=== PATIENT | male | born 1960 | race Caucasian/White ===

== ENCOUNTER → 2018-09-23 | Outpatient (REF) | payer MEDICARE ==
[2018-09-23 19:43] LABS: BLOOD UREA NITROGEN 12 MG/DL (7-18); CREATININE FOR GFR 1.09 MG/DL (0.70-1.30); GLOMERULAR FILTRATION RATE > 60.0 (>56)
== END ==
LOC: M LABDRWAD 19:29
PROVIDERS: ATTEND Neurological Surgery
DX: Q28.2 Arteriovenous malformation of cerebral vessels (principal)

== ENCOUNTER → 2018-09-23 | Outpatient (CLI) | payer MEDICARE ==
[~2018-09-23] MED LIST: ISOVUE-370 76% 100ML VIAL (Q9967) As Ordered ONE
--- NOTE | 2018-09-24 10:13 | REP ---
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 Comparison noncontrast brain CT study April 01, 2006. No other comparison imaging is available. TECHNIQUE: 75 mL of intravenous Isovue 370 is acquired. Helical scanning is acquired. Maximum intensity projection, MPR, and surface rendered 3D imaging is generated. FINDINGS: CT angiography confirms the presence of a prominent draining vein coursing obliquely through the parenchyma of the left superior cerebellum with a draining vein apparently entering the sagittal sinus. The branching pattern in the parenchyma of the left cerebellar hemisphere is compatible with a developmental venous anomaly. No other vascular anomaly is appreciated intracranially. There is no evidence of arteriovenous fistula or other malformation. The sagittal and both sigmoid sinuses are patent and enhance normally. The distal vertebral arteries and basilar artery are unremarkable. Distal internal carotid arteries are unremarkable. The A1 segment of the left anterior cerebral artery is small compared to its right-sided counterpart. There is no evidence of green aneurysm. No abnormal intracranial parenchymal enhancement is seen. There is no evidence of infarct, hemorrhage, or mass. 3D surface rendered images show no additional abnormality. IMPRESSION: Fairly large developmental venous anomaly in the left cerebellar hemisphere noted. No other evidence of intracranial vascular malformation. Electronically Signed by Dylan Mcdonnell MD 09/24/2018 04:45 P
== END ==
LOC: M RAD 18:15
PROVIDERS: ATTEND Neurological Surgery
DX: Q28.2 Arteriovenous malformation of cerebral vessels (principal)
CPT/HCPCS: 70496; 82565; 84520; Q9967

== ENCOUNTER → 2019-08-13 | Outpatient (REF) | payer MEDICARE ==
[2019-08-18 15:07] LABS: ANCA-ATYPICAL <1:20 titer (Neg:<1:20); ANTI DS-DNA AB Negative (Negative); ANTINUCLEAR ANTIBODIES DIRECT Negative (Negative); CYTOPLASMIC NEUTROP AB ANCA-C <1:20 titer (Neg:<1:20); PERINUCLEAR AB ANCA-P <1:20 titer (Neg:<1:20); RNP ANTIBODIES <0.2 AI (0.0-0.9); SJOGREN'S ANTI SS-A <0.2 AI (0.0-0.9); SJOGREN'S ANTI SS-B <0.2 AI (0.0-0.9); SMITH ANTIBODIES <0.2 AI (0.0-0.9)
== END ==
LOC: M LAB REF 16:53
PROVIDERS: ATTEND Internal Medicine Pulmonary Disease
DX: R05 Cough (principal)

== ENCOUNTER → 2019-09-11 | Outpatient (REF) | payer MEDICARE ==
[2019-09-16 16:29] LABS: MALB URINE SIEMENS 61.4 MG/L; MAU/CREAT RATIO 23.3 MCG/MG (0.0-30.0)
== END ==
LOC: M LAB REF 15:00
PROVIDERS: ATTEND Nurse Practitioner Family
DX: E11.65 Type 2 diabetes mellitus with hyperglycemia (principal)

== ENCOUNTER → 2019-09-18 | Outpatient (CLI) | payer MEDICARE ==
--- NOTE | 2019-09-18 14:35 | PFTRPT ---
Visit Date: 09/18/2019 Referring Doctor: Harmeet Grant D.O. Height: 70.00 Inches Weight: 195.00 Lbs BSA: 2.06 Diagnosis: R06.00 Spirometry: Pre and post bronchodilator study of excellent technical quality. Mild difficulty with required maneuver. Forced vital capacity normal. FEV1 in proportion. Obstructive index is, therefore, normal. Flow Volume Loop: Expiratory limb of the flow volume loop is normal. No significant bronchodilator response is identified. Lung Volumes: Total lung capacity normal. Residual volume is in proportion. Diffusing Capacity: Diffusing capacity although minimally reduced is appropriate for alveolar volume but hemoglobin reduced at 10.5. Airway Mechanics: Airway resistance and conductance are normal. IMPRESSION: Mild reduction in the absolute diffusing capacity probably on the basis of anemia. Please correlate clinically. MTDD
== END ==
LOC: M CARPUL 13:59
PROVIDERS: ATTEND Internal Medicine Pulmonary Disease
DX: R06.00 Dyspnea, unspecified (principal)

== ENCOUNTER → 2020-04-09 | Outpatient (CLI) | payer MEDICARE ==
[~2020-04-09] MED LIST changes: +INSUDET SC; +INSUHUMDS SC; -ISOVUE-370 76% 100ML VIAL (Q9967) As Ordered ONE; +MORP15TA2 PO; +PANT40TA29 PO; +PREG100CA PO; +PROZ20CA11 PO; +PROZ40CA PO; +REGL5TAB2 PO; +TIZA2CAP PO; +medical marijuana
== END ==
LOC: M LABSMTC 13:59
PROVIDERS: ATTEND Anesthesiology
DX: Z01.812 Encounter for preprocedural laboratory examination (principal); Z20.822 Contact with and (suspected) exposure to COVID-19

== ENCOUNTER 2020-04-14 08:37 | Day surgery (SDC) | payer MEDICARE ==
[~2020-04-14] VITALS: Ht 177.8 cm; Wt 74.4 kg
[~2020-04-14 08:37] MED LIST changes: +NS 1,000 ML IV ONE
[2020-04-14] MEDS ORDERED: LIDOCAINE 2% 100MG/5ML SDV (FOR ANES.) As Ordered ONE (09:20)
[2020-04-14] MEDS ORDERED: propofoL 200 MG/20 ML VIAL As Ordered ONE ×2 (09:20→09:52)
[2020-04-14] MEDS ORDERED: fentaNYL 100 MCG/2 ML INJECTION (J3010) As Ordered ONE (09:27)
[2020-04-14] MEDS ORDERED: ONDANSETRON 4MG/2ML VIAL As Ordered ONE (09:44)
--- NOTE | 2020-04-14 10:09 | ROOR ---
Patient Name: Bud Walker Procedure Date: 04/14/2020 9:41 AM Date of : 1960 Age: 59 Room: [facility] Gender: Male Note Status: Finalized Procedure: Upper Endoscopy + Biopsies Indications: Nausea with vomiting Providers: Bo Paige MD Referring MD: James Lockett DO Requesting Provider: Medicines: Monitored Anesthesia Care Complications: No immediate complications. Procedure: Pre-Anesthesia Assessment: - The heart rate, respiratory rate, oxygen saturations, blood pressure, adequacy of pulmonary ventilation, and response to care were monitored throughout the procedure. The Endoscope was introduced through the mouth, and advanced to the second part of duodenum. The upper GI endoscopy was accomplished without difficulty. The patient tolerated the procedure well. Findings: The Z-line was regular and was found 35 cm from the incisors. Multiple biopsies were obtained with cold forceps for evaluation to rule out Steward's Esophagus randomly at the gastroesophageal junction. No other significant abnormalities were identified in a careful examination of the stomach. Biopsies were taken with a cold forceps in the gastric antrum for Helicobacter pylori testing. The exam of the duodenum was otherwise normal. Impression: - Z-line regular, 35 cm from the incisors. - Multiple biopsies were obtained at the gastroesophageal junction. - Biopsies were taken with a cold forceps for Helicobacter pylori testing. - The examination was otherwise normal. Recommendation: - Patient has a contact number available for emergencies. The signs and symptoms of potential delayed complications were discussed with the patient. Return to normal activities tomorrow. Written discharge instructions were provided to the patient. - Gastroparesis diet indefinitely. - Continue present medications. - Discharge patient to home. - Await pathology results. - Telephone GI clinic for pathology results in 1 week. - Return to referring physician. - The findings and recommendations were discussed with the patient. Procedure Code(s): --- Professional --- 23388, Esophagogastroduodenoscopy, flexible, transoral; with biopsy, single or multiple Diagnosis Code(s): --- Professional --- R11.2, Nausea with vomiting, unspecified CPT copyright 2019 [employer]. All rights reserved. The codes documented in this report are preliminary and upon triage licensed practical nurse review may be revised to meet current compliance requirements. Bo Paige MD Bo Paige MD 04/14/2020 10:08:18 AM Electronically signed by Bo Paige MD Number of Addenda: 0 Note Initiated On: 04/14/2020 9:41 AM Estimated Blood Loss: Estimated blood loss: none.
[2020-04-14 10:47] VITALS: BP 137/83
== END 2020-04-14 10:50 | disposition home or self-care (01) ==
LOC: M OPP 08:37
PROVIDERS: ATTEND Internal Medicine Gastroenterology
DX: R11.2 Nausea with vomiting, unspecified (principal); E10.43 Type 1 diabetes mellitus with diabetic autonomic (poly)neuropathy; D13.0 Benign neoplasm of esophagus; D13.1 Benign neoplasm of stomach; M10.9 Gout, unspecified; R12 Heartburn; Z88.8 Allergy status to other drugs, medicaments and biological substances; Z79.4 Long term (current) use of insulin; Z79.899 Other long term (current) drug therapy
CPT/HCPCS: 43239; 88305; J2405; J3010

== ENCOUNTER → 2020-04-29 | Outpatient (CLI) | payer MEDICARE ==
[~2020-04-29] MED LIST changes: +E-Z-GAS II EFFERVESCENT PACKET (SODIUM BICARB./CITRIC ACID/SIMETHICONE) As Ordered ONE; +E-Z-HD 98% w/w 340GM SUSP BTL As Ordered ONE; +E-Z-PAQUE 96% w/w SUSP 176GM BTL As Ordered ONE; -NS 1,000 ML IV ONE
--- NOTE | 2020-04-29 16:51 | REP ---
INDICATION: NAUSEA W/ VOMITING. COMPARISON: None TECHNIQUE: This procedure was performed by Ny Tamayo [facility], under the direct supervision of Dr. Mcdonnell. Images were reviewed with Dr. Mcdonnell prior to dictation. Liquid barium and gas producing crystals were given in the erect position, as well as liquid barium in the prone oblique position in order to perform a double contrast upper GI examination. Additionally liquid barium was given at the end of the examination in order to perform a small-bowel follow-through. FINDINGS: The nutritional yeast supervisor film shows no organomegaly or pathological masses. The intestinal gas pattern is unremarkable. There is mild curvature of the T-spine convex to the left, with mild curvature of the L-spine convex to the right. The oral and pharyngeal stages of deglutition were unremarkable. Esophageal transport is prompt and efficient and there is no evidence of esophagitis, stricture, or mucosal ring. There is evidence of a hiatal hernia. Gastroesophageal reflux was visualized to the level of the jasmyn. The stomach mccain are normally outlined. The rugal folds appears slightly thickened, this could indicate gastritis. The duodenal mccain are normally outlined. The mucosal folds are smooth and regular. There is no duodenitis, peptic ulcer disease or neoplasm. The visualized portion of the proximal small bowel appears normal in course and caliber. The barium column was followed through the small bowel to the level of the terminal ileum. Small bowel transit time is approximately 150 minutes. During fluoroscopy gentle palpation shows all loops are freely movable and pliable. There is no fixed angulated loops. There are numerous folds of the ileum, giving it a jejunoileal fold pattern reversal appearance. This could be indicative of celiac disease. The small bowel mucosal pattern is normal in course and caliber. There is no transition to suggest a partial small bowel obstruction. Spot filming of the terminal ileum shows it to be unremarkable. IMPRESSION: 1. Small hiatal hernia. 2. Gastroesophageal reflux to the level of the jasmyn. 3. Mildly thickened rugal folds, could be an indication of gastritis. 4. Jejunoileal fold pattern reversal of the ileum, this could be indicative of celiac disease. 0.4 minutes of fluoroscopy time was utilized for this procedure. Some fluoroscopic images are performed with last image hold technology. These images require no additional radiation. <Electronically signed by Ny Tamayo > 04/29/20 [id number] <Electronically signed by Felipe Mcdonnell > 04/29/20 [id number]
== END ==
LOC: M RAD 09:18
PROVIDERS: ATTEND Internal Medicine Gastroenterology
DX: R11.2 Nausea with vomiting, unspecified (principal); K44.9 Diaphragmatic hernia without obstruction or gangrene; K21.9 Gastro-esophageal reflux disease without esophagitis

== ENCOUNTER 2020-12-12 16:39 | Inpatient (IN) | payer MEDICARE ==
[~2020-12-12] VITALS: Ht 177.8 cm; Wt 68.1 kg
[~2020-12-12 16:39] MED LIST changes: -E-Z-GAS II EFFERVESCENT PACKET (SODIUM BICARB./CITRIC ACID/SIMETHICONE) As Ordered ONE; -E-Z-HD 98% w/w 340GM SUSP BTL As Ordered ONE; -E-Z-PAQUE 96% w/w SUSP 176GM BTL As Ordered ONE
[2020-12-12] MEDS ORDERED: ONDA4TAB6 PO (16:55)
[2020-12-12] MEDS ORDERED: CEPH250REC PO (16:55)
[2020-12-12] MEDS ORDERED: LORA2CON5 PO (16:55)
[2020-12-12] MEDS ORDERED: FLUO20SO PO (16:55)
[2020-12-12] MEDS ORDERED: PREG20SO PO (16:55)
[2020-12-12] MEDS ORDERED: MORP20SO PO (16:55)
[2020-12-12] MEDS ORDERED: VANCOMYCIN HCL 1,000 MG, VIAL MATE ADAPTER 1 EACH in NS 250 ML IV ONE (18:00)
[2020-12-12 18:22] LABS: BASO % 0.2 % (0.0-1.0); EOS # 0.1 10^3/uL (0.0-0.5); EOS % 0.7 % (0.0-3.0); HEMATOCRIT 37.5 % (42.0-52.0); HEMOGLOBIN 13.2 g/dl (13.5-17.5); LYMPH # 1.7 10^3/uL (1.5-5.0); LYMPH % 10.5 % (24.0-44.0); MEAN CORPUSCULAR HEMOGLOBIN 28.6 pg (27.0-33.0); MEAN CORPUSCULAR HGB CONC 35.2 g/dl (32.0-36.5); MEAN CORPUSCULAR VOLUME 81.3 fl (80.0-96.0); MONO % 6.3 % (2.0-8.0); NEUTROPHILS # 13.3 10^3/uL (1.5-8.5); NEUTROPHILS % 81.4 % (36.0-66.0); PLATELET COUNT, AUTOMATED 418 10^3/uL (150-450); RED BLOOD COUNT 4.61 10^6/uL (4.30-6.10); WHITE BLOOD COUNT 16.3 10^3/uL (4.0-10.0)
[2020-12-12] MEDS ORDERED: MORPHINE 4 MG/ML 1ML VIAL/SYRINGE (J2270) IV ONE (18:30)
--- NOTE | 2020-12-12 18:36 | REP ---
INDICATION: R leg pain r/o dvt. COMPARISON: None. TECHNIQUE: Multiple ultrasonographic images of the deep venous structures of the right lower extremity were obtained from the inguinal ligament to the ankle. Venous compression techniques, color doppler imaging, and augmentation techniques were also obtained where appropriate. As per the ACR guidelines the anterior tibial vein can not be effectively evaluated. Only compression techniques in the calf on the peroneal and posterior tibial veins was attempted/performed. FINDINGS: There is no abnormal echogenic material seen within any of the visualized deep venous structures that would suggest acute thrombosis. Coaptation is unremarkable throughout. Doppler interrogation shows an expected response to respiratory variability and augmentation in the thigh. Compression techniques in the calf showed no abnormality. The color flow images show what appears to be a normal vascular pattern throughout the thigh. IMPRESSION: There is no ultrasonographic evidence of deep venous thrombosis involving any of the visualized deep venous structures of the right lower extremity as described above. Due to technical parameters calf vein DVT can not be ruled out. Lymph nodes of various sizes were seen in the groin. The largest has a short axis dimension of 1 cm and a long axis dimension of 2 cm. <Electronically signed by Ricardo Hebert > 12/12/20 [id number]
[2020-12-12 18:42] LABS: ERYTHROCYTE SEDIMENTATION RATE 82 mm/hr (0-20)
[2020-12-12 18:55] LABS: RSV AMPLIFICATION NEGATIVE (NEGATIVE)
[2020-12-12] MEDS ORDERED: OMEP-221 PO (18:56)
[2020-12-12] MEDS ORDERED: HOME MED LIST COMPLETE! XX SCH (19:00)
[2020-12-12] MEDS ORDERED: DEXTROSE 50% 50 ML SYRINGE IV PRN (19:05)
[2020-12-12] MEDS ORDERED: GLUCAGON INJ 1MG VIAL SC PRN (19:05)
[2020-12-12] MEDS ORDERED: ONDANSETRON 4MG/2ML VIAL IV PRN (19:05)
[2020-12-12] MEDS ORDERED: ACETAMINOPHEN TAB 650MG DOSE (2X325MG) PO PRN (19:05)
[2020-12-12] MEDS ORDERED: GLUCOSE 4GM CHEW TABLET PO PRN (19:05)
[2020-12-12 19:39] LABS: BLOOD UREA NITROGEN 13 MG/DL (7-18); CALCIUM LEVEL 8.5 MG/DL (8.5-10.1); CARBON DIOXIDE LEVEL 33 MEQ/L (21-32); CHLORIDE LEVEL 88 MEQ/L (98-107); CREATININE FOR GFR 1.06 MG/DL (0.70-1.30); GLOMERULAR FILTRATION RATE > 60.0 (>56); GLUCOSE, FASTING 695 MG/DL (70-100); POTASSIUM SERUM 4.7 MEQ/L (3.5-5.1); SODIUM LEVEL 125 MEQ/L (136-145)
[2020-12-12] MEDS ORDERED: HumuLIN R (REGULAR) INSULIN (NovoLIN R) **100U/ML** PER UNIT IV STA (19:53)
[2020-12-12 20:19] LABS: HEMOGLOBIN A1c 13.5 %
[2020-12-12] MEDS ORDERED: NS 1,000 ML IV ONE (20:20)
[2020-12-12] MEDS ORDERED: MORPHINE 2 MG/ML 1ML VIAL (J2270) IV PRN (20:25)
[2020-12-12] MEDS ORDERED: FLUoxetine 20 MG CAP PO SCH (21:00)
[2020-12-12] MEDS ORDERED: HumaLOG INSULIN (NovoLOG) PER UNIT SC SCH (21:00)
[2020-12-12 22:00] VITALS: BP 147/82
--- NOTE | 2020-12-12 22:09 | HPEPDOC ---
General Date of Admission Dec 12, 2020 at 19:01 Date of Service: Dec 12, 2020 Chief Complaint The patient is a 60-year-old male admitted with a reason for visit of Cellulitis In Diabetic Foot. Source: Patient History of Present Illness Lee Walker is a 60-year-old male with significant history of BPH, hyperlipidemia, hypertension, GERD, gastroparesis, and diabetes who presents with complaints of right foot pain. Patient reports that he has been treated outpatient for cellulitis of the right foot and has antibiotics changed twice doxy and then Keflex but as symptoms have gotten worse he was told by clinic to come to the hospital for IV antibiotics. Patient endorses redness, pain and swelling to right foot. He describes as moderate sharp pain and tenderness most notably on the bottom of his foot. Patient does have neuropathy related to his diabetes and thus he does endorse neuropathic type pain as well. Patient reports that he has not been taking any blood sugar or heart related medication. He reports that he has been on hospice but his "levels are too g ood" and thus he is no longer on hospice. Patient is adamant regarding DNR/DNI. He is particular regarding no further treatment for his diabetes or any type of cardiac medications. He reports that he does not want his blood sugar checked or insulin given. He does not want to take anything for his cholesterol or high blood pressure he only wants to take comfort related medications. Patient is interested in antibiotics and IV fluids as needed for his foot infection. He does want treatment for his right foot. He however would rather have amputation of the foot than debridement he outlines. Patient reports that he has seen podiatry in the past but has not followed up for some time. At baseline, patient walks with a cane but has reported gait discomfort due to pain of ambulating on the foot. Pt denies perera, sinus congestion, sore throat, productive cough, sob, palpitations, chest pain, abdominal pain, weakness,or syncope. Patient does endorse episodes of nausea vomiting diarrhea occasional but this is not new. Patient reports that he suffers from gastroparesis related to his diabetes and this is not uncommon for him to have episodes of GI upset 3-4 times a week. Of note, patient with elevated white count, WBC 16.3, lactic 1.3. Patient with blood glucose 695 and again he declined insulin for this. Post hydration lab work did show improvement to blood glucose in the 300s. Podiatry consulted and appreciate recommendations. Patient to have x-ray of foot and MRI for consideration of osteomyelitis. Patient will be admitted for further evaluation management of presenting concerns. Home Medications Scheduled Cephalexin Monohydrate (Cephalexin) 250 Mg/5 Ml Susp.recon, 10 ML PO TID, (Reported) started on 12/07/20 x 10 days Fluoxetine HCl (Fluoxetine HCl) 20 Mg/5 Ml Solution, 20 ML PO QHS, (Reported) Omeprazole (Omeprazole) 40 Mg Capsule.dr, 40 MG PO QHS, (Reported) OPEN CAPSULE AND PUT CONTENTS IN APPLE SAUCE AND SWALLOW IMMEDIATELY Pregabalin (Pregabalin) 20 Mg/1 Ml Solution, 5 ML PO TID, (Reported) Scheduled PRN Lorazepam (Lorazepam) 2 Mg/1 Ml Oral.conc, 0.25 ML PO Q2HP PRN for ANXIETY/AGITATION, (Reported) Morphine Sulfate (Morphine Sulfate) 20 Mg/5 Ml Solution, 3 ML PO Q4HP PRN for pain, (Reported) Ondansetron (Ondansetron Odt) 4 Mg Tab.rapdis, 1 TAB PO BIDP PRN for NAUSEA, (Reported) Allergies Coded Allergies: metformin (Verified Adverse Reaction, Intermediate, vomiting, 03/29/20) simvastatin (Verified Adverse Reaction, Intermediate, muscle cramps, 03/29/20) Past Medical History Medical History BPH, hyperlipidemia, hypertension, GERD, diabetes, former smoker Surgical History Ventral hernia surgery, TURP Family History Significant Family History: Other (family members wiht foot amputation d/t DM or vascular reasons, pt uncertain) Social History * Smoker: former Smoker Alcohol: Denies Drugs: denies Recent Travel/Sick Contacts: Denies: Recent travel, Recent sick contacts Psychosocial History: Other (recently on hospice) Patient reports previously on hospice but recently was unable to recertify recen tly. A-FIB/CHADSVASC A-FIB History Current/History of A-Fib/PAF?: No Current PO Anticoag Therapy: No Review of Systems Constitutional: Denies: Chills, Fever, Night Sweats Eyes: Denies: Pain, Vision change ENT: Denies: Head Aches, Ear Pain, Dysphagia Skin: Reports: Breakdown, Other (redness, swelling foot); Denies: Rash, Lesions Pulmonary: Denies: Dyspnea, Cough Cardiovascular: Denies: Chest Pain, Palpitations, Orthopnea, Paroxysmal Noc. Dyspnea, Lt Headedness Gastrointestinal: Denies: Nausea, Vomiting, Abdominal Pain, Diarrhea Genitourinary: Denies: Dysuria, Frequency, Incontinence, Retention Hematologic: Denies: Bruising, Bleeding Excessively Endocrine: Reports: Polydipsia Musculoskeletal: Denies: Neck Pain, Back Pain, Joint Pain, Muscle Pain, Spasms Neurological: Denies: Weakness, Numbness, Change in speech, Confusion Psych: Reports: Mood Normal; Denies: Depression, Memory Issues Physical Examination General Exam: Positive: Alert, No Acute Distress Eye Exam: Positive: PERRLA, Conjunctiva & lids normal, EOMI; Negative: Sclera icteric ENT Exam: Positive: Atraumatic, Mucous membr. moist/pink, Pharynx Normal Neck Exam: Positive: Supple; Negative: JVD, thyromegaly Chest Exam: Positive: Clear to auscultation, Normal air movement Heart Exam: Positive: Rate Normal, Regular Rhythm, Normal S1, Normal S2; Negative: Murmurs, Rubs Telemetry: Positive: No significant arrhythmia Abdomen Exam: Positive: Normal bowel sounds, Soft; Negative: Tenderness, Hepatospenomegaly Extremity Exam: Positive: Normal pulses, Tenderness, Swelling; Negative: Clubbing, Cyanosis, Edema Skin Exam: Positive: Other skin issue (erythema R foot -dorsal and sole of foot extending from 4th and little toe); Negative: Nl turgor and temperature, Breakdown, Lesion Neuro Exam: Positive: Normal Gait, Normal Speech, Cranial Nerves 3-12 NL, Reflexes 2+ Psych Exam: Positive: Mental status NL, Mood NL, Oriented x 3 Vital Signs Vital Signs Date Time Temp Pulse Resp B/P (MAP) Pulse Ox O2 Delivery O2 Flow Rate FiO2 12/12/20 19:03 18 Room Air 12/12/20 16:47 98.5 76 116/57 (76) 98 Laboratory Data Labs 24H Laboratory Tests 2 12/12/20 17:59: Immature Granulocyte % (Auto) 0.9, Neutrophils (%) (Auto) 81.4H, Lymphocytes (%) (Auto) 10.5L, Monocytes (%) (Auto) 6.3, Eosinophils (%) (Auto) 0.7, Basophils (%) (Auto) 0.2, Neutrophils # (Auto) 13.3H, Lymphocytes # (Auto) 1.7, Monocytes # (Auto) 1.0H, Eosinophils # (Auto) 0.1, Basophils # (Auto) 0.0, Nucleated Red Blood Cells % (auto) 0.0, Erythrocyte Sedimentation Rate 82H, Anion Gap 4L, Glomerular Filtration Rate > 60.0, Calcium Level 8.5, C-Reactive Protein, Quantitative 11.10H 12/12/20 18:06: Estimated Mean Plasma Glucose 341H, Hemoglobin A1c 13.5, Coronavirus (COVID-19 )(PCR) NEGATIVE, Influenza Type A (RT-PCR) NEGATIVE, Influenza Type B (RT-PCR) NEGATIVE, Respiratory Syncytial Virus (PCR) NEGATIVE 12/12/20 20:12: CBC/BMP Laboratory Tests 12/12/20 17:59 Microbiology Microbiology 12/12/20 Blood Culture, Received Pending Assessment/Plan 1. Right foot cellulitis in diabetic: Monitor for signs/symptoms worsening infection Empiric coverage with vanc. Symptomatic/supportive care-immobilize extremity and elevate. Analgesics as needed. Right foot x-ray/MRI-consideration for osteomyelitis A.m. labs Appreciate podiatry for further recommendation 2. Hyperglycemia in patient with diabetes, without DKA: Patient A1c 13. Patient reports that he is noncompliant for diabetic treatment. He is adamant he does not want his blood sugar checked or treatment for diabetes. He is very specific on what treatment plans he is interested in -he was counseled extensively regarding effects of hyperglycemia on wound healing and complications of uncontrolled diabetes. 3. Hyponatremia in setting of hyperglycemia: Corrected sodium 125-135 given patient glucose. -Plans to hydrate patient given he is hyperglycemic and is agreeable to IV fluid. 4. HTN/HDL: As noted, patient refusing any medication reported to any other chronic conditions beyond outlined above. He is agreeable should his blood pressure get lower such due to the infection he is agreeable to IV fluids for that; but otherwise no heroic measures/he would not want any type of vasopressors. 5. Chronic pain/palliation: Continue patient home medications for pain and anxiety. As needed analgesic and antianxiety medication for breakthrough. Encourage patient expression to focus on comfort with above. DVT prophylaxis: Patient declines CODE STATUS: DNR/DNI. Patient has MOLST form on chart. Patient is very specific regarding his treatment interest. Will follow along patient's wishes. Continue goals of care discussion throughout course of treatment. Patient reports that he has previously been on hospice and is interested on going back when he qualifies. He at one point does disclose "told by It will be a long slow with diabetes". Disposition planning: Home pending clinical course/podiatry recommendations Plan / VTE VTE Prophylaxis Ordered?: No ANNE BETANCOURT NP Dec 12, 2020 20:45
[2020-12-12] MEDS: MORPHINE 2 MG/ML 1ML VIAL (J2270) IV PRN (22:18)
[2020-12-12] MEDS: OMEPRAZOLE 20 MG CAP PO SCH (22:18)
[2020-12-12] MEDS: LORazepam 0.5 MG TAB PO PRN (22:19)
[2020-12-12] MEDS: VANCOMYCIN HCL 1,000 MG, VIAL MATE ADAPTER 1 EACH in NS 250 ML IV SCH (22:19)
[2020-12-12] MEDS: NS 1,000 ML IV SCH (22:20)
[2020-12-12] MEDS: PREGABALIN 100 MG CAP (LYRICA) PO SCH (22:56)
[2020-12-12] MEDS: FLUoxetine 20 MG CAP PO SCH (22:56)
--- NOTE | 2020-12-12 23:11 | REPVR ---
PROCEDURE INFORMATION: Exam: XR Right Foot Exam date and time: 12/12/20 (9:06pm) Age: 60 years old Clinical indication: Right foot -- diabetic ulcer / infection TECHNIQUE: Imaging protocol: XR Right foot Views: 3 or more views COMPARISON: US Duplex, Ext,LOWER veins,unilat of 12/12/20 FINDINGS: No acute fracture nor dislocation. Soft tissue air involving the right 5th toe, at the level of the right 5th proximal phalanx. The right 5th toe appears edematous and swollen. No definite bone destruction noted. A short thin metallic density (4.5 x 1 mm size) projects over the soft tissues lateral to the distal portion of the right 5th proximal phalanx. IMPRESSION: Findings compatible with soft tissue infection / edema involving the right 5th toe, at the level of the right 5th proximal phalanx. No definite bone destruction nor bone erosion noted. Probable small thin metallic foreign body (4.5 x 1 mm size) in the soft tissues of the right 5th toe (see comments above). Further evaluation for early osseous changes can be obtained with MRI and/or bone scan, as felt warranted. Electronically signed by: Alejandra Paz On 12/12/2020 23:11:45 PM
[2020-12-13] MEDS: VANCOMYCIN HCL 1,000 MG, VIAL MATE ADAPTER 1 EACH in NS 250 ML IV SCH ×3 (05:24→22:57)
[2020-12-13] MEDS: MORPHINE 2 MG/ML 1ML VIAL (J2270) IV PRN ×3 (05:26→17:08)
[2020-12-13 06:00] VITALS: BP 140/83
[2020-12-13] MEDS ORDERED: HumaLOG INSULIN (NovoLOG) PER UNIT SC SCH (07:30)
[2020-12-13 08:11] LABS: BASO # 0.1 10^3/uL (0.0-0.2); BASO % 0.4 % (0.0-1.0); EOS # 0.1 10^3/uL (0.0-0.5); EOS % 0.8 % (0.0-3.0); HEMOGLOBIN 13.1 g/dl (13.5-17.5); LYMPH # 1.8 10^3/uL (1.5-5.0); LYMPH % 10.9 % (24.0-44.0); MEAN CORPUSCULAR HEMOGLOBIN 29.2 pg (27.0-33.0); MEAN CORPUSCULAR HGB CONC 35.4 g/dl (32.0-36.5); MEAN CORPUSCULAR VOLUME 82.6 fl (80.0-96.0); MONO # 1.1 10^3/uL (0.0-0.8); MONO % 6.2 % (2.0-8.0); NEUTROPHILS # 13.7 10^3/uL (1.5-8.5); NEUTROPHILS % 80.9 % (36.0-66.0); PLATELET COUNT, AUTOMATED 387 10^3/uL (150-450); RED BLOOD COUNT 4.48 10^6/uL (4.30-6.10)
[2020-12-13 08:39] LABS: BLOOD UREA NITROGEN 11 MG/DL (7-18); CALCIUM LEVEL 8.9 MG/DL (8.5-10.1); CARBON DIOXIDE LEVEL 29 MEQ/L (21-32); CHLORIDE LEVEL 93 MEQ/L (98-107); CREATININE FOR GFR 0.68 MG/DL (0.70-1.30); GLOMERULAR FILTRATION RATE > 60.0 (>56); GLUCOSE, FASTING 378 MG/DL (70-100); POTASSIUM SERUM 4.6 MEQ/L (3.5-5.1); SODIUM LEVEL 131 MEQ/L (136-145)
[2020-12-13] MEDS: LACTOBACILLUS ACIDOPHILUS CAP (BACID) PO SCH (09:24)
[2020-12-13] MEDS: PREGABALIN 100 MG CAP (LYRICA) PO SCH ×3 (09:24→20:17)
[2020-12-13] MEDS: NS 1,000 ML IV SCH ×3 (09:25→22:27)
--- NOTE | 2020-12-13 11:39 | IPNPDOC ---
Text Note Date of Service The patient was seen on 12/13/20. NOTE Subjective: Patient adamantly stated that he does not want food debridement, he does not want any medications to control his diabetes, he does not want any other medications besides only antibiotics and pain medications. He told me he would rather have a foot amputation than foot debridement. I explained to patient that without appropriate glucose control treatment it would be very difficult to treat infection. Objective: GENERAL APPEARANCE: NAD HEENT: no scleral icterus, no JVD, EOMI CARDIOVASCULAR: S1S2 LUNGS: Diminished lung sounds bilaterally ABDOMEN: soft & not tender w palpation MUSCULOSKELETAL: no cyanosis, plantar surface of the right foot around fourth and fifth toes has erythema with some visible pus INTEGUMENT: no generalized pallor NEUROLOGICAL: cranial nerve function from 2-12 intact, follows commands, speech not dysarthric Assessment and plan Patient is 60 years old male with past medical history of type 2 diabetes uncontrolled, hyperlipidemia, hypertension, neuropathic pain, GERD, gastroparesis presented to hospital with right foot cellulitis. He reports that he has been on hospice but his "levels are too good" and thus he is no longer on hospice. Patient is adamant regarding DNR/DNI. He is particular regarding no further treatment for his diabetes or any type of cardiac medications. He reports that he does not want his blood sugar checked or insulin given. He does not want to take anything for his cholesterol or high blood pressure he only wants to take comfort related medications. Patient is interested in antibiotics and IV fluids as needed for his foot infection. He does want treatment for his right foot. He however would rather have amputation of the foot than debridement he outlines. Right foot cellulitis Continue vancomycin IV and I added Zosyn IV day 1 Appreciate/agree with inspector and adjuster golf club head consult Most likely patient will need debridement however patient refused it X-ray shows Findings compatible with soft tissue infection / edema involving the right 5th toe, at the level of the right 5th proximal phalanx. No definite bone destruction nor bone erosion noted. MRI of the foot pending Type 2 diabetes/hyperglycemia/pseudohyponatremia Patient stated that he does not want any treatment for diabetes Hypertension/hyperlipidemia Patient refused medications Chronic pain/palliation: Continue patient home medications for pain and anxiety. Palliative care on board Deconditioning PT/OT VS,Fishbone, I+O VS, Fishbone, I+O Laboratory Tests 12/12/20 17:59 12/13/20 07:33 Vital Signs Date Time Temp Pulse Resp B/P (MAP) Pulse Ox O2 Delivery O2 Flow Rate FiO2 12/13/20 09:25 18 12/13/20 06:00 99.0 85 140/83 (102) 98 Room Air I&O- Last 24 Hours up to 6 AM 12/13/20 06:00 Intake Total 1690 ml Output Total 1000 ml Balance 690 ml TORSTEN ONOFRE DO Dec 13, 2020 11:39
[2020-12-13] MEDS: PIPERACILLIN/TAZOBACTAM SOD 4.5 GM in D5W MINI-BAG PLUS 50 ML IV SCH ×2 (12:25→20:16)
[2020-12-13] MEDS ORDERED: PERCOCET 5MG/325MG TAB PO PRN (12:40)
--- NOTE | 2020-12-13 14:00 | REP ---
INDICATION: poss r foot osteo. COMPARISON: Comparison radiographs of the right foot are from December 12, 2020. The radiographs show soft tissue emphysema in the soft tissues about the proximal phalanx and MTP joint of the 5th digit and a small metallic foreign body in the soft tissues. There is also metallic foreign body in the soft tissues at the heel along the plantar surface of the posterior calcaneus. TECHNIQUE: Axial, sagittal, and coronal imaging planes are included. T1 and T2 weighted sequences include spin echo, fast spin echo, inversion recovery sequences with and without fat saturation. FINDINGS: There is mild metallic field artifact emanating from the metallic foreign body in the lateral soft tissues adjacent to the proximal phalanx of the 5th toe. There is also multifocal low signal corresponding to the air in the adjacent soft tissue seen radiographically. However, cortical and medullary bone signal intensity appear to be normal on T1 weighted scans in the distal 5th metatarsal, the adjacent proximal phalanx, and the fused middle and distal phalanges. This mitigates against the possibility of osteomyelitis. On T2 weighted scans cortical and medullary bone signal intensity also appear to be relatively normal in with possible marrow edema in the proximal phalanx. There is also metallic field susceptibility artifact from the foreign body in the heel soft tissues. Tarsal and metatarsal signal intensity is normal however. There is no evidence of soft tissue fluid collection to suggest abscess. IMPRESSION: There are 2 separate metallic foreign bodies in the soft tissues of the right foot producing metallic field susceptibility artifact, 1 adjacent to the 5th PIP joint and the other at the plantar aspect of the heel soft tissues. There is soft tissue gas producing signal dropout in the soft tissues adjacent to the 5th toe as seen radiographically. Cortical and medullary bone signal intensity however are normal. No definite evidence of osteomyelitis. No abscess seen. <Electronically signed by Felipe Mcdonnell > 12/13/20 [id number]
[2020-12-13] MEDS: PERCOCET 5MG/325MG TAB PO PRN ×3 (14:11→23:03)
[2020-12-13 14:18] VITALS: BP 146/98
--- NOTE | 2020-12-13 14:30 | CR ---
CONSULTATION DATE: 12/13/2020 REASON FOR CONSULTATION: Right foot infection. HISTORY OF PRESENT ILLNESS: Bud Walker is a 60-year-old diabetic male who was admitted yesterday due to right foot infection. He states he has had redness and swelling in his foot for about two weeks. He has longstanding history of diabetes. He has elected himself to be on comfort care measures. He is not interested in taking any medications for diabetes, cardiac or other conditions. He states he has chronic pain in his feet and he would rather have his leg amputated than have any intervention to his feet. He is extremely adamant that he does not want any surgery on his foot to treat the infection other than amputation of the leg as a whole. PAST MEDICAL HISTORY: Significant for diabetes with neuropathy and uncontrolled glucose, BPH, hyperlipidemia, hypertension, GERD, gastroparesis. ALLERGIES: METFORM AND SIMVASTATIN. SOCIAL HISTORY: Denies alcohol, former smoker. REVIEW OF SYSTEMS: Notes significant pain in both feet. Right is worse. Denies nausea, vomiting, fevers. VITALS: T-max is 99. LABORATORY DATA: White blood cell count on admission was 16.3. It is elevated to 17 today. ESR is 82. CRP was 11.0 on admission. Initial glucose reading was 695. His hemoglobin A1c is 13.5. X-rays were performed. There is a metallic foreign body at the plantar surface of the right fifth toe with some cutaneous emphysema in that site. Lower extremity examination: There was erythema and edema extending from the fifth toe where there is a purulent abscess in the location where the foreign body is noted. ASSESSMENT: This is a 60-year-old diabetic male with right foot abscess. PLAN: A lengthy discussion had with patient. I feel that it would be best to drain this area and remove the foreign body even though he would not have perfect feet thereafter. They would certainly be better than his current condition. I explained that amputation of his foot is not likely to take care of all of his pain, also carries higher risks in wound healing potential as well as decreased mobility. Certainly despite his glucose levels this wound potentially could heal if adequately debrided with the foreign body removed. Without any surgical intervention, this wound will not heal as antibiotics alone will not improve his present infection. Despite this, the patient is very adamant in refusing any intervention that I can provide so I will sign off. If the patient changes his mind, I could be reconsulted. If eventual infection worsens to necessitate leg amputation, this could be performed by a vascular or general surgeon.
[2020-12-13] MEDS: OMEPRAZOLE 20 MG CAP PO SCH (20:17)
[2020-12-13] MEDS: FLUoxetine 20 MG CAP PO SCH (20:18)
[2020-12-13 20:29] VITALS: BP 135/80
[2020-12-13] MEDS: LORazepam 0.5 MG TAB PO PRN (20:42)
[2020-12-14] MEDS: MORPHINE 2 MG/ML 1ML VIAL (J2270) IV PRN (00:59)
[2020-12-14] MEDS: PIPERACILLIN/TAZOBACTAM SOD 4.5 GM in D5W MINI-BAG PLUS 50 ML IV SCH ×2 (04:09→12:03)
[2020-12-14] MEDS: PERCOCET 5MG/325MG TAB PO PRN ×2 (04:17→08:38)
[2020-12-14] MEDS: LORazepam 0.5 MG TAB PO PRN (04:54)
[2020-12-14 05:53] VITALS: BP 148/87
[2020-12-14 06:10] LABS: BASO # 0.1 10^3/uL (0.0-0.2); BASO % 0.4 % (0.0-1.0); EOS # 0.1 10^3/uL (0.0-0.5); EOS % 0.8 % (0.0-3.0); HEMATOCRIT 32.1 % (42.0-52.0); HEMOGLOBIN 11.4 g/dl (13.5-17.5); LYMPH # 1.6 10^3/uL (1.5-5.0); LYMPH % 10.2 % (24.0-44.0); MEAN CORPUSCULAR HEMOGLOBIN 29.1 pg (27.0-33.0); MEAN CORPUSCULAR HGB CONC 35.5 g/dl (32.0-36.5); MEAN CORPUSCULAR VOLUME 81.9 fl (80.0-96.0); MONO # 1.1 10^3/uL (0.0-0.8); NEUTROPHILS # 12.7 10^3/uL (1.5-8.5); NEUTROPHILS % 80.5 % (36.0-66.0); PLATELET COUNT, AUTOMATED 366 10^3/uL (150-450); RED BLOOD COUNT 3.92 10^6/uL (4.30-6.10); WHITE BLOOD COUNT 15.8 10^3/uL (4.0-10.0)
[2020-12-14] MEDS: VANCOMYCIN HCL 1,000 MG, VIAL MATE ADAPTER 1 EACH in NS 250 ML IV SCH (06:10)
[2020-12-14 06:34] LABS: BLOOD UREA NITROGEN 13 MG/DL (7-18); CALCIUM LEVEL 8.4 MG/DL (8.5-10.1); CARBON DIOXIDE LEVEL 27 MEQ/L (21-32); CHLORIDE LEVEL 95 MEQ/L (98-107); CREATININE FOR GFR 0.68 MG/DL (0.70-1.30); GLOMERULAR FILTRATION RATE > 60.0 (>56); GLUCOSE, FASTING 381 MG/DL (70-100); POTASSIUM SERUM 4.3 MEQ/L (3.5-5.1); SODIUM LEVEL 131 MEQ/L (136-145)
[2020-12-14] MEDS: PREGABALIN 100 MG CAP (LYRICA) PO SCH (08:37)
[2020-12-14] MEDS: LACTOBACILLUS ACIDOPHILUS CAP (BACID) PO SCH (08:38)
[2020-12-14] MEDS ORDERED: MORPHINE SULFATE ORAL SOLN 10 MG/5 ML UD PO PRN (09:00)
[2020-12-14] MEDS: NS 1,000 ML IV SCH (12:06)
--- NOTE | 2020-12-14 12:46 | IPNPDOC ---
Text Note Date of Service The patient was seen on 12/14/20. NOTE Subjective: Patient is a 60-year-old male with a diabetic foot wound who is very adamant about not having debridement. Patient states that he would like the foot to be amputated. Patient states he has had multiple long conversation with his primary care provider about not wanting any further treatment for his diabetes or any heart medications. Patient says he just wants pain management and that is it. Patient does not care about prolonging his life, he states he just wants quality of life. Patient states that the pain in his foot has been getting worse. Patient does not have any other complaints at this time Review of systems: General: Patient denies fevers HEENT: Patient denies headaches Cardiovascular: Patient denies chest pain Respiratory: Patient denies shortness of breath, cough GI: Patient denies abdominal pain, nausea, vomiting, diarrhea : Patient denies increased frequency or pain with urination Extremities: Patient reports pain in his right foot as above. Neurological: Patient denies numbness or tingling in legs Physical exam: Vitals: See below General: Alert and oriented female patient who was sitting up in bed when I walked in. Patient not appear to be in any acute distress. HEENT: Normocephalic, atraumatic, moist mucous membranes. Neck: No lymphadenopathy or thyromegaly Cardiac: Regular rate and rhythm, no murmurs, normal S1, normal S2 Pulm: Clear to auscultation bilaterally. No wheezes, rhonchi, rales Abd: Nondistended, nontender to palpation, normal bowel sounds Ext: Right foot has a blackened area with some erythema around it that is tender to the touch. Labs: See below Imaging: No new imaging has been performed Assessment/plan: 60-year-old male with past medical history of type 2 diabetes uncontrolled, hyperlipidemia, hypertension, neuropathic pain, GERD, gastroparesis presented to hospital right foot cellulitis. Patient reports he had been on hospice but his "levels are too good" and thus he is no longer on hospice. 1. Right foot cellulitis. Continue vancomycin and IV Zosyn. Podiatry saw the patient and recommended debridement however, patient adamantly refused this stating he just wants the whole area cut off. Dr. Linares has signed off the case at this time and the patient also adamantly refuses to see him again. General surgery will see the patient about possible amputation however, does not appear likely that this is indicated at this time. We will continue to treat with antibiotics as above. Patient did state that if we will not amputate his foot he will "go home and shoot it with a 12-gauge" I highly advised against doing that and at least waiting until we speak with the general surgeon and/or vascular surgeon about possible amputation. I again adamantly told the patient to not go home and to yourself in the foot in order to get your foot amputated. I did advise the patient that treating the infection with debridement may be the better option than amputation however, the patient is again adamant that he wants 1 surgery in 1 surgery only. 2. Type 2 diabetes. Patient does not want any treatment for diabetes and is refusing insulin at this time. 3. Hypertension. Patient refuses any heart medications. 4. Hyperlipidemia. Patient again refuses medication as above. 5. Chronic pain. Patient is on home pain medications with oral morphine which I continued. 6. Deconditioning. Continue with PT OT. DVT Prophylaxis: Teds Disposition: Pending improvement of the foot wound. Late entry: Patient decided to leave AGAINST MEDICAL ADVICE. Please see discharge summary from 12/14/2020 for more information. VS,Fishbone, I+O VS, Fishbone, I+O Laboratory Tests 12/14/20 05:46 Vital Signs Date Time Temp Pulse Resp B/P (MAP) Pulse Ox O2 Delivery O2 Flow Rate FiO2 12/14/20 12:04 18 12/14/20 05:53 98.4 82 148/87 (107) 97 Room Air I&O- Last 24 Hours up to 6 AM 12/14/20 06:00 Intake Total 5550 ml Output Total 4350 ml Balance 1200 ml LILY WELLER DO Dec 14, 2020 12:46
--- NOTE | 2020-12-14 13:45 | CR.PDOC ---
General Surgery Consultation Date of Consultation 12/14/20 History and Physical CONSULT REPORT FOR: Dr. Terry (hospitalist service) REASON FOR CONSULTATION: diabetic foot infection HISTORY OF PRESENT ILLNESS: Patient is a 60-year-old male longstanding diabetic who tells me he has decided to stop taking all his blood pressure, cardiac medication and diabetic medication for roughly a month now. Basically tells me he has given up trying to cope with his diabetes and its complications for him which includes gastroparesis with nausea vomiting as well as neuropathy. He has failed outpatient treatment for diabetic foot infection and presented himself to the emergency room December 12, 2020 was placed on IV antibiotics. He has been seen by Dr. Maldonado from podiatry he was recommended I&D and debridement of the necrotic tissues for treatment of his foot infection but patient is adamant that he does not want debridement or multiple debridement and he is seen the eventual outcome to his family that he would eventually require further leg amputation and just wants to have his leg amputated. He is not experiencing fevers or c hills. He is not toxic appearing. He is on IV antibiotics and pain medication but has been refusing treatment of his blood sugars. I was asked by the hospitalist service to see the patient with regards to his wish for leg amputation. PAST MEDICAL HISTORY: 1. As documented in the chart he has longstanding diabetes with neuropathy, gastroparesis. He has hypertension, hyperlipidemia and BPH. PAST SURGICAL HISTORY: INCLUDES: Ventral hernia surgery, TURP. ALLERGIES: Please see below. HOME MEDICATIONS: Please see below. REVIEW OF SYSTEMS: Patient reports weight loss for the past few months, reports a good appetite. He reports he walks with a cane secondary to the pain on both legs. He denies any prior heart attacks, any prior strokes. He has occasional nausea and vomiting determined to be secondary to diabetic gastroparesis. No fevers or chills reported. PHYSICAL EXAMINATION: VITALS SIGNS: Please see below. GENERAL APPEARANCE: Patient seen sitting up on the bed, right leg elevated on one pillow, looks comfortable in no acute distress. Not ill-appearing SKIN: Warm and dry. HEENT: Normal inspection. EXTREMITIES: Right leg mildly edematous secondary to swelling associated with slight plantar and fifth digit soft tissue infection. The skin at the bottom of the fifth digit onto the lateral part of the metatarsal is whitish. No active drainage. Moderate swelling on the foot, mild swelling on the leg. Mild erythema extending from that area to the midfoot laterally. No gross crepitations. Patient able to move other toes. I could not feel a DP pulse, PT pulses, popliteal pulses on both legs. Left foot and leg without any open wounds. LABORATORY DATA: Please see below. IMAGING STUDIES: I reviewed the x-ray as well as the MRI of the foot IMPRESSION AND PLAN: Diabetic foot infection clinically patient has a localized soft tissue infection at the lateral aspect of the fifth digit with slight extension to the plantar aspect about the level of the metatarsal laterally. On MRI there is no osteomyelitis. He does not have any systemic signs of toxicity. I would agree with Dr. Larry that this would just need localized treatment with incision and drainage and probably debridement of the necrotic tissue. He will also need further assessment of the vascular supply is a do not feel any DP or PT pulses. Most likely will heal without need for amputation. Of course his diabetes also needs to be addressed to allow for full healing. He has a very unusual request that he does not want to take any further care of his diabetes but he wants his leg amputated so he can go on with his life. I pointed out to him that ambulation is not currently indicated at this point. He makes a point that he has seen his family need frequent debridements and eventually ended up with amputation. I have 2 reservations at this point which I discussed with him: First is he expects a good result from the leg amputation by bypassing the infected tissues but he does not want to deal with the his systemic problems. If his medical comorbidities would not be addressed, I expect he will be at high risk of dehiscence of his stump, infection of his stump and thix may even not heal appropriately if the vascular supply is not addressed which would escalate treatment. Secondly , I do not think amputation is indicated at this point given the localized infection. He is adamant that the only thing he wants is amputation. I told him I do not agree with that approach so I told the patient that he may have to find another surgeon would be willing to accommodate his d esire. Vital Signs Vital Signs Date Time Temp Pulse Resp B/P (MAP) Pulse Ox O2 Delivery O2 Flow Rate FiO2 12/14/20 12:04 18 12/14/20 05:53 98.4 82 148/87 (107) 97 Room Air I&Os I&O- Last 24 Hours up to 6 AM 12/14/20 05:59 Intake Total 5850 ml Output Total 4350 ml Balance 1500 ml Laboratory Data Labs 24H Laboratory Tests 2 12/14/20 05:46: Immature Granulocyte % (Auto) 1.1, Neutrophils (%) (Auto) 80.5H, Lymphocytes (%) (Auto) 10.2L, Monocytes (%) (Auto) 7.0, Eosinophils (%) (Auto) 0.8, Basophils (%) (Auto) 0.4, Neutrophils # (Auto) 12.7H, Lymphocytes # (Auto) 1.6, Monocytes # (Auto) 1.1H, Eosinophils # (Auto) 0.1, Basophils # (Auto) 0.1, Nucleated Red Blood Cells % (auto) 0.0, Anion Gap 9, Glomerular Filtration Rate > 60.0, Calcium Level 8.4L CBC/BMP Laboratory Tests 12/14/20 05:46 Microbiology Microbiology 12/12/20 Blood Culture - Preliminary, Resulted No growth after 24 hours . All specim... Home Medications Scheduled Cephalexin Monohydrate (Cephalexin) 250 Mg/5 Ml Susp.recon, 10 ML PO TID, (Reported) started on 12/07/20 x 10 days Fluoxetine HCl (Fluoxetine HCl) 20 Mg/5 Ml Solution, 20 ML PO QHS, (Reported) Omeprazole (Omeprazole) 40 Mg Capsule.dr, 40 MG PO QHS, (Reported) OPEN CAPSULE AND PUT CONTENTS IN APPLE SAUCE AND SWALLOW IMMEDIATELY Pregabalin (Pregabalin) 20 Mg/1 Ml Solution, 5 ML PO TID, (Reported) Scheduled PRN Lorazepam (Lorazepam) 2 Mg/1 Ml Oral.conc, 0.25 ML PO Q2HP PRN for ANXIETY/AGITATION, (Reported) Morphine Sulfate (Morphine Sulfate) 20 Mg/5 Ml Solution, 3 ML PO Q4HP PRN for pain, (Reported) Ondansetron (Ondansetron Odt) 4 Mg Tab.rapdis, 1 TAB PO BIDP PRN for NAUSEA, (Reported) Allergies Coded Allergies: metformin (Verified Adverse Reaction, Intermediate, vomiting, 03/29/20) simvastatin (Verified Adverse Reaction, Intermediate, muscle cramps, 03/29/20) REKHA HERNANDEZ MD Dec 14, 2020 13:45
[2020-12-14] MEDS ORDERED: AUGM875T28 PO (14:20)
--- NOTE | 2020-12-14 14:47 | DS.PDOC ---
Discharge Summary General Date of Admission Dec 12, 2020 at 19:01 Date of Discharge 12/14/2020 Attending Physician: LILY WELLER DO Specialist/Consultants Involve: REKHA ESTEVES MD Specialist/Consultants Involve Kelby Linares DPM Discharge Summary PROCEDURES PERFORMED DURING STAY: None. ADMITTING DIAGNOSES: 1. Right foot cellulitis. 2. Hyperglycemia patient with diabetes 3. Hyponatremia in the setting of hyperglycemia 4. Hypertension 5. Hyperlipidemia 6. Chronic pain/palliation DISCHARGE DIAGNOSES: 1. Right foot diabetic soft tissue infection. 2. Type 2 diabetes mellitus 3. Hypertension 4. Hyperlipidemia 5. Chronic pain/palliation COMPLICATIONS/CHIEF COMPLAINT: Cellulitis In Diabetic Foot. HISTORY OF PRESENT ILLNESS: Patient is a 60-year-old male who initially presented to the hospital with right foot pain. Patient reports he been treated outpatient for cellulitis of the foot and his antibiotics changed twice from D oxy to Keflex but as his symptoms continue to get worse he was told by his primary care provider to come to the hospital for IV antibiotics. Patient endorses redness and swelling to the foot. He describes moderate sharp pain with tenderness most notably the bottom of his foot. Patient does have neuropathy related to his diabetes and thus endorses a neuropathic type pain as well. Patient's not been taking any blood sugar or heart related medications. Patient reports that he is on hospice but "his levels are too good" and thus he is no longer on hospice. Patient is adamant regarding DNR/DNI. He is particular regarding no further treatment for his diabetes or any type of cardiac medications. He reports that he does not want his blood sugar checked or insulin given. He does not want to take anything for his cholesterol high blood pressure and he wants to take comfort related medications. Patient is interested in antibiotics IV fluids as needed for his foot infection. He does want treatment for his right foot. He would rather have a amputation and debridement of his foot. Patient reports that he has seen podiatry in the past but is not follow-up for some time. At baseline, patient walks with a cane and is reported gait discomfort due to pain ambulating on the foot. Patient was found to have an elevated white blood cell count of 16.3, lactic acid 1.3 and a blood glucose of 695 which the patient declined insulin for. Post hydration lab work-up did show improvement to his blood glucose in the 300s. HOSPITAL COURSE: Podiatry saw the patient and recommended debridement of soft tissue and removal of a metallic foreign body which was believed to be the nidus of the infection. Patient was started on IV vancomycin which was broadened to IV Zosyn. Patient did not show any clinical signs of sepsis however, patient was very particular about his treatment. Patient reports that he wanted to be on comfort measures because he was sick of taking insulin and other diabetic medications and no longer wants to treat this. Patient had a long conversation apparently with his primary care provider about this and they try to get him on hospice however, patient did not qualify for hospice. Patient is on comfort measures at home with pain medication as the only medications that he is taking. Patient refuses to take any diabetic medications or any medications for hypertension or cholesterol as these are not comfort measure medication. Patient did not agree with podiatry's recommendation for debridement and again was adamant about wanting his right foot amputated. I called Dr. Esteves of general surgery who stated that if the patient does have any mutation, the wound would most likely have poor healing and it would most likely make his situation worse if he is not being treated for his diabetes. Patient also had diminished pulses in his bilateral lower extremities so he will most likely need a vascular surgery consultation as well to further evaluate the vascular system. This does not fit with the patient's request to be comfort measures only however. Because the patient's wound healing would most likely be very poor leading to further complications and the fact that the infection is confined to the soft tissues of the foot, Dr. Esteves recommended debridement and incision and drainage of the soft tissue infection and continued IV antibiotics. Patient was upset with this stating that we were not treating him. Patient did make a comment and just earlier in the day to me that he said he should have taken a 12-gauge shotgun to his foot which I strongly advised against doing. Patient was adamant about leaving the hospital. I did have a conversation with the patient advising him that he should stay and I agree with the surgeons recommendations of debridement of the soft tissues as the best line of treatment for the patient's foot infection however, the patient is agreed and was adamant that he wanted the amputation. I advised him that I cannot force a surgeon to amputate someone's limb even if it is the request of the patient. I did advise the patient that danis kennedy in the hospital is the best course of action at this time and leaving the hospital AGAINST MEDICAL ADVICE increases the chance of further damage being done to the foot, systemic infection, and . Patient states he is aware of this and is adamant about leaving the hospital AGAINST MEDICAL ADVICE. Patient refused to sign the AMA form as he states that we are not treating him so he is not refusing treatment although I did try to explain to him that we have offered him a treatment he just does not want that treatment. Patient had his IV removed and left the hospital AGAINST MEDICAL ADVICE on 12/14/2020. DISCHARGE MEDICATIONS: Please see below. ALLERGIES: Please see below. PHYSICAL EXAMINATION ON DISCHARGE: VITAL SIGNS: Please see below. General: Alert and oriented male patient who was walking around the room with a cane. Patient did not appear to be in any acute distress. HEENT: Normocephalic, atraumatic, moist mucous membranes. Neck: No lymphadenopathy or thyromegaly Cardiac: Regular rate and rhythm, no murmurs, normal S1, normal S2 Pulm: Clear to auscultation bilaterally. No wheezes, rhonchi, rales Abd: Nondistended, nontender to palpation, normal bowel sounds Ext: Patient had area around the right fifth digit that was red and swollen with some areas of necrotic tissue on the plantar aspect of the foot without any purulent drainage. Trace posterior tibial and dorsalis pedis pulses bilaterally LABORATORY DATA: Please see below. IMAGING: Duplex ultrasound of the right lower extremity from was reported to show there is no ultrasonic graphic evidence of DVT involving any visualized deep venous structures of the right lower extremity. Due to technical parameters calf vein DVT cannot be ruled out. Lymph nodes of various sizes were seen in the groin. The largest has a short axis dimension of 1 cm in the long axis dimension of 2 cm. X-ray of the right foot performed on 12/12/2020 is were to show findings compatible soft tissue infection/edema involving the fifth right toe, at the level of the right fifth proximal phalanx. There is no definite bone destruction or bone erosion noted. Probable small thin metallic body (4.5 x 1 mm size) in the soft tissue of the right fifth toe. Further evaluation for early osseous changes can be obtained with MRI and/or bone scan as felt warranted. MRI of the right foot without contrast from the 12/13/2020 was reported to show there are 2 separate metallic foreign bodies in the soft tissue of the right foot produced a metallic field susceptibility artifact, one adjacent to the fifth PIP joint and the other at the plantar aspect of the heel soft tissues. There is soft tissue gas producing signal dropout in the soft tissues adjacent to the fifth toe as seen radiographically. Cortical and medullary bone signal intensity however are normal. No definite evidence of osteomyelitis. No abscess seen. PROGNOSIS: Fair ACTIVITY: As tolerated. DIET: Consistent carbohydrate DISCHARGE PLAN: Discharged AGAINST MEDICAL ADVICE DISPOSITION: 07 Against Medical Advice. DISCHARGE INSTRUCTIONS: 1. Follow-up with your primary care provider within 3 to 5 days of discharge. 2. Return to the emergency department if symptoms worsen ITEMS TO FOLLOWUP ON ON OUTPATIENT: 1. Follow-up foot infection. DISCHARGE CONDITION: Stable. TIME SPENT ON DISCHARGE: 25 minutes. Vital Signs/I&Os Vital Signs Date Time Temp Pulse Resp B/P (MAP) Pulse Ox O2 Delivery O2 Flow Rate FiO2 12/14/20 12:34 18 12/14/20 05:53 98.4 82 148/87 (107) 97 Room Air I&O- Last 24 Hours up to 6 AM 12/14/20 06:00 Intake Total 5550 ml Output Total 4350 ml Balance 1200 ml Laboratory Data Labs 24H Laboratory Tests 2 12/14/20 05:46: Immature Granulocyte % (Auto) 1.1, Neutrophils (%) (Auto) 80.5H, Lymphocytes (%) (Auto) 10.2L, Monocytes (%) (Auto) 7.0, Eosinophils (%) (Auto) 0.8, Basophils (%) (Auto) 0.4, Neutrophils # (Auto) 12.7H, Lymphocytes # (Auto) 1.6, Monocytes # (Auto) 1.1H, Eosinophils # (Auto) 0.1, Basophils # (Auto) 0.1, Nucleated Red Blood Cells % (auto) 0.0, Anion Gap 9, Glomerular Filtration Rate > 60.0, Calcium Level 8.4L CBC/BMP Laboratory Tests 12/14/20 05:46 Microbiology Microbiology 12/12/20 Blood Culture - Preliminary, Resulted No growth after 24 hours . All specim... Discharge Medications Scheduled Amoxicillin/Potassium Clav (Augmentin 875-125 Tablet) 1 Each Tablet, 1 TAB PO BID Fluoxetine HCl (Fluoxetine HCl) 20 Mg/5 Ml Solution, 20 ML PO QHS, (Reported) Omeprazole (Omeprazole) 40 Mg Capsule.dr, 40 MG PO QHS, (Reported) OPEN CAPSULE AND PUT CONTENTS IN APPLE SAUCE AND SWALLOW IMMEDIATELY Pregabalin (Pregabalin) 20 Mg/1 Ml Solution, 5 ML PO TID, (Reported) Scheduled PRN Lorazepam (Lorazepam) 2 Mg/1 Ml Oral.conc, 0.25 ML PO Q2HP PRN for ANXIETY/AGITATION, (Reported) Morphine Sulfate (Morphine Sulfate) 20 Mg/5 Ml Solution, 3 ML PO Q4HP PRN for pain, (Reported) Ondansetron (Ondansetron Odt) 4 Mg Tab.rapdis, 1 TAB PO BIDP PRN for NAUSEA, (Re ported) Allergies Coded Allergies: metformin (Verified Adverse Reaction, Intermediate, vomiting, 03/29/20) simvastatin (Verified Adverse Reaction, Intermediate, muscle cramps, 03/29/20) LILY WELLER DO Dec 14, 2020 14:47
== END 2020-12-14 14:15 | disposition left against medical advice (07) | DRG 74 ==
LOC: EDBD 16:39 → M ED 16:39 → M ED INP 19:01 → ENRESERV 19:27 → M MS5PR 21:35
PROVIDERS: ADMIT Family Medicine; ATTEND Family Medicine
DX: E11.40 Type 2 diabetes mellitus with diabetic neuropathy, unspecified (principal); E87.1 Hypo-osmolality and hyponatremia; L03.115 Cellulitis of right lower limb; E11.65 Type 2 diabetes mellitus with hyperglycemia; I10 Essential (primary) hypertension; E78.5 Hyperlipidemia, unspecified; Z79.899 Other long term (current) drug therapy; Z88.8 Allergy status to other drugs, medicaments and biological substances; K21.9 Gastro-esophageal reflux disease without esophagitis; N40.0 Benign prostatic hyperplasia without lower urinary tract symptoms; Z87.891 Personal history of nicotine dependence; Z66 Do not resuscitate; E11.69 Type 2 diabetes mellitus with other specified complication; J98.2 Interstitial emphysema